=== PATIENT | male | born 2000 | race Two or more races ===

== ENCOUNTER 2024-01-24 09:32 | Emergency (ER) | payer SELFPAY ==
[2024-01-24] MEDS: Erythromycin Base 0.5% Ophth Oint 1 GM Tube EYEBOTH ONE (10:23)
== END 2024-01-24 10:47 | disposition home or self-care (01) ==
LOC: MW.ED 09:32
DX: S05.02XA Injury of conjunctiva and corneal abrasion without foreign body, left eye, initial encounter (principal); S05.01XA Injury of conjunctiva and corneal abrasion without foreign body, right eye, initial encounter; X58.XXXA Exposure to other specified factors, initial encounter
CPT/HCPCS: 99283; A9270